=== PATIENT | male | born 1955 | race Caucasian/White ===

== ENCOUNTER 2017-05-15 16:14 | Inpatient (IN) | payer OTHER ==
[~2017-05-15] VITALS: Ht 179.1 cm
[2017-05-15] MEDS: PANTOPRAZOLE 80 MG in SODIUM CHL 0.9% 60 ML IV SCH (09:15)
[2017-05-15 17:35] LABS: Basophils # (auto) 0 uL; Basophils % (auto) 0.2 % (0.0-2.0); CONDITION Y; Eosinophils # (auto) 0 uL; Eosinophils % (auto) 0.4 % (0.0-7.0); Hematocrit 31.4 % (41.0-53.0); Hemoglobin 10.6 g/dL (13.5-17.5); Lymphocytes # (auto) 0.7 uL; Lymphocytes % (auto) 8.3 % (10.0-50.0); Mean Corpuscular Hgb Conc. 33.9 g/dL (32.0-36.0); Mean Corpuscular Volume 94.5 fL (80.0-100.0); Mean Platelet Volume 11.6 fL (7.4-10.4); Monocytes # (auto) 0.5 uL; Monocytes % (auto) 5.8 % (0.0-12.0); Neutrophils # (auto) 7.4 uL; Neutrophils % (auto) 85.3 % (37.0-80.0); Platelet Count (auto) 114 10^3/uL (140-450); Red Cell Distribution Width 14.5 % (11.6-16.0); SUSPECT SEE PRINTOUT; White Blood Cell 8.7 10^3/uL (4.4-10.8)
[2017-05-15 17:43] LABS: Albumin 2.7 g/dL (3.4-5.0); BUN/Creatinine Ratio 39.8; Bilirubin, Total 0.6 mg/dL (0.2-1.0); Calcium 7.4 mg/dL (8.5-10.1); Magnesium 1.9 mg/dL (1.6-2.6); Potassium 4.4 mmol/L (3.5-5.1); Total Protein 5.3 g/dL (6.4-8.2)
[2017-05-15] MEDS ORDERED: ESCI5TAB PO (18:18)
[2017-05-15] MEDS ORDERED: APIX5TAB PO (18:18)
[2017-05-15] MEDS ORDERED: ASPI81CH43 PO (18:18)
[2017-05-15] MEDS ORDERED: LIDOCAINE 1% HCL (LOCAL ANESTH.) INJ 20ML MDV IJ ONE (19:45)
[2017-05-15] MEDS ORDERED: LORazepam 2MG/ML-1ML VIAL IV ONE ×2 (20:00→21:15)
[2017-05-15] MEDS ORDERED: LORazepam 2MG/ML-1ML VIAL ONE (20:01)
[2017-05-15] MEDS ORDERED: AMIODARONE HCL 900 MG IV ONE (20:15)
[2017-05-15] MEDS: AMIODARONE HCL 900 MG in DEXTROSE 500 ML IV SCH (20:36)
[2017-05-15] MEDS ORDERED: NEOMYCIN-BACITRACIN-POLYM UNITDOSE PKG TOP OINT TOP ONE (20:45)
[2017-05-15] MEDS ORDERED: BACITRACIN TOP OINT 1 UD PKG TOP ONE (21:00)
[2017-05-15 22:42] LABS: Hematocrit 26.7 % (41.0-53.0); Hemoglobin 8.9 g/dL (13.5-17.5)
[2017-05-15] MEDS ORDERED: ALBUMIN 5% 250 ML IV ONE (22:45)
[2017-05-15] MEDS ORDERED: SODIUM CHLORIDE 0.9% 1,000 ML IV SCH (22:48)
[2017-05-15] MEDS ORDERED: MORPHINE SULF INJ 2 MG/ML SYRINGE 1ML IV PRN ×2 (23:00)
[2017-05-15] MEDS ORDERED: ONDANSETRON HCL 4 MG/2 ML VIAL IV PRN (23:00)
[2017-05-15] MEDS ORDERED: NITROGLYCERIN 0.4 MG SL TAB SL PRN (23:00)
[2017-05-15 23:28] LABS: INR 1.35 (0.9-1.15); Partial Thromboplastin Time 27.2 sec (22.64-33.71)
[2017-05-15 23:33] LABS: Prothrombin Time 14.8 sec (9.37-12.3)
[2017-05-15 23:45] VITALS: BP 82/40
[2017-05-16] VITALS (98 sets, daily range): BP systolic 77–142; BP diastolic 35–81
[2017-05-16] MEDS: AMIODARONE HCL 900 MG in DEXTROSE 500 ML IV SCH ×3 (00:03→14:29)
[2017-05-16] MEDS ORDERED: diphenhdrAMINE HCL 50 MG/1 ML VL IM ONE (04:45)
[2017-05-16 06:42] LABS: Basophils # (auto) 0 uL; Basophils % (auto) 0.1 % (0.0-2.0); CONDITION Y; Eosinophils # (auto) 0 uL; Eosinophils % (auto) 0.1 % (0.0-7.0); Hematocrit 28.3 % (41.0-53.0); Hemoglobin 9.9 g/dL (13.5-17.5); Lymphocytes # (auto) 1.2 uL; Lymphocytes % (auto) 11.1 % (10.0-50.0); Mean Corpuscular Hemoglobin 32.7 pg (28.0-32.0); Mean Corpuscular Volume 93.4 fL (80.0-100.0); Mean Platelet Volume 11.8 fL (7.4-10.4); Monocytes # (auto) 0.8 uL; Monocytes % (auto) 7.1 % (0.0-12.0); Neutrophils # (auto) 8.7 uL; Neutrophils % (auto) 81.6 % (37.0-80.0); Red Cell Distribution Width 14.4 % (11.6-16.0); White Blood Cell 10.6 10^3/uL (4.4-10.8)
[2017-05-16 06:44] LABS: Platelet Count (auto) 100 10^3/uL (140-450)
[2017-05-16 06:46] LABS: Albumin 2.6 g/dL (3.4-5.0); Calcium 7.5 mg/dL (8.5-10.1); Potassium 4.3 mmol/L (3.5-5.1)
[2017-05-16 06:54] LABS: BUN/Creatinine Ratio 48.9; Total Protein 4.9 g/dL (6.4-8.2)
[2017-05-16] MEDS: PANTOPRAZOLE 80 MG in SODIUM CHL 0.9% 60 ML IV SCH (09:15)
[2017-05-16] MEDS: BACITRACIN TOP OINT 1 UD PKG TOP SCH ×2 (10:00→21:43)
[2017-05-16] MEDS: NOREPINEPHRINE BITARTRATE 250 ML IV SCH (18:52)
[2017-05-16 18:59] LABS: Urine Bilirubin Negative (Negative); Urine Blood Negative /uL (Negative); Urine Color Yellow (Yellow); Urine Glucose Normal (Normal); Urine Ketone Negative (Negative); Urine Nitrite Negative (Negative); Urine RBC 2 /hpf (0 - 3); Urine Squamous Epithelial Cell FEW /hpf (<5); Urine Urobilinogen Normal (Negative)
[2017-05-16 19:59] LABS: Hematocrit 18.1 % (41.0-53.0)
[2017-05-16 20:18] LABS: INR 1.25 (0.9-1.15); Partial Thromboplastin Time 25.9 sec (22.64-33.71); Prothrombin Time 13.7 sec (9.37-12.3)
[2017-05-16 20:37] LABS: Hemoglobin 6.3 g/dL (13.5-17.5)
[2017-05-16] MEDS: PANTOPRAZOLE 40 MG/10 ML VIAL IV SCH ×2 (21:41→22:07)
[2017-05-16] MEDS: SODIUM CHLORIDE 0.9% 1,000 ML IV SCH (21:43)
[2017-05-17] VITALS (99 sets, daily range): BP systolic 75–135; BP diastolic 28–82
[2017-05-17 06:21] LABS: Basophils # (auto) 0 uL; Basophils % (auto) 0.1 % (0.0-2.0); CONDITION Y; DEFINITIVE SEE PRINTOUT; Eosinophils # (auto) 0 uL; Eosinophils % (auto) 0.1 % (0.0-7.0); Hematocrit 22.2 % (41.0-53.0); Lymphocytes # (auto) 1.2 uL; Lymphocytes % (auto) 10.3 % (10.0-50.0); Mean Corpuscular Hemoglobin 32.5 pg (28.0-32.0); Mean Corpuscular Hgb Conc. 35.8 g/dL (32.0-36.0); Mean Corpuscular Volume 90.7 fL (80.0-100.0); Mean Platelet Volume 11.4 fL (7.4-10.4); Monocytes # (auto) 0.9 uL; Monocytes % (auto) 7.5 % (0.0-12.0); Neutrophils # (auto) 9.4 uL; Platelet Count (auto) 92 10^3/uL (140-450); Red Cell Distribution Width 15.2 % (11.6-16.0); White Blood Cell 11.4 10^3/uL (4.4-10.8)
[2017-05-17 06:59] LABS: Albumin 2.5 g/dL (3.4-5.0); BUN/Creatinine Ratio 44.2; Calcium 7.3 mg/dL (8.5-10.1); Potassium 4.4 mmol/L (3.5-5.1)
[2017-05-17 07:01] LABS: Bilirubin, Total 0.7 mg/dL (0.2-1.0); Total Protein 4.6 g/dL (6.4-8.2)
[2017-05-17] MEDS: BACITRACIN TOP OINT 1 UD PKG TOP SCH ×2 (10:05→22:00)
[2017-05-17] MEDS: AMIODARONE HCL 900 MG in DEXTROSE 500 ML IV SCH (14:25)
[2017-05-17] MEDS ORDERED: GOLYTELY 4L KIT PO ONE (17:45)
[2017-05-17 18:23] LABS: Hematocrit 20.8 % (41.0-53.0); Hemoglobin 7.1 g/dL (13.5-17.5)
[2017-05-17] MEDS: NOREPINEPHRINE BITARTRATE 250 ML IV SCH (18:29)
[2017-05-17] MEDS: SODIUM CHLORIDE 0.9% 1,000 ML IV SCH (21:02)
[2017-05-17] MEDS: PANTOPRAZOLE 40 MG/10 ML VIAL IV SCH (21:47)
[2017-05-17] MEDS ORDERED: SODIUM BICARBONATE 50ML VIAL 150 ML in D5W 5% 1,000 ML IV SCH (23:30)
[2017-05-17] MEDS ORDERED: ACETYLCYSTEINE ORAL for CIN 20%(200MG/ML) 4ML PO ONE (23:30)
[2017-05-18] VITALS (84 sets, daily range): BP systolic 105–168; BP diastolic 43–98
[2017-05-18 03:55] LABS: Basophils # (auto) 0 uL; Basophils % (auto) 0.2 % (0.0-2.0); CONDITION Y; DEFINITIVE SEE PRINTOUT; Eosinophils # (auto) 0.1 uL; Hematocrit 22.1 % (41.0-53.0); Hemoglobin 7.5 g/dL (13.5-17.5); Lymphocytes # (auto) 1.1 uL; Lymphocytes % (auto) 12.7 % (10.0-50.0); Mean Corpuscular Hemoglobin 31.7 pg (28.0-32.0); Mean Corpuscular Volume 93.2 fL (80.0-100.0); Mean Platelet Volume 11.6 fL (7.4-10.4); Monocytes # (auto) 0.9 uL; Monocytes % (auto) 10.9 % (0.0-12.0); Neutrophils # (auto) 6.5 uL; Neutrophils % (auto) 75.2 % (37.0-80.0); Platelet Count (auto) 82 10^3/uL (140-450); Red Cell Distribution Width 15.6 % (11.6-16.0); White Blood Cell 8.7 10^3/uL (4.4-10.8)
[2017-05-18 04:17] LABS: BUN/Creatinine Ratio 32.2; Calcium 7.4 mg/dL (8.5-10.1); Potassium 3.7 mmol/L (3.5-5.1)
[2017-05-18] MEDS ORDERED: SODIUM CHLORIDE LOCK 10 ML ONE (09:53)
[2017-05-18] MEDS ORDERED: diphenhdrAMINE HCL 50 MG/1 ML VL ONE (09:53)
[2017-05-18] MEDS ORDERED: MIDAZOLAM HCL 5 MG/ML-1ML VIAL ONE (09:53)
[2017-05-18] MEDS ORDERED: fentaNYL CITRATE 100 MCG/2 ML VL ONE (09:53)
[2017-05-18] MEDS ORDERED: LIDOCAINE VISCOUS 2% 15ML UD ONE (09:53)
[2017-05-18] MEDS: BACITRACIN TOP OINT 1 UD PKG TOP SCH ×2 (10:00→21:14)
[2017-05-18] MEDS ORDERED: ACETYLCYSTEINE ORAL for CIN 20%(200MG/ML) 4ML PO SCH (10:00)
[2017-05-18] MEDS: PANTOPRAZOLE 40 MG/10 ML VIAL IV SCH ×2 (10:00→21:14)
[2017-05-18] MEDS ORDERED: EPINEPHrine HCL 1 MG/10 ML SYRG ONE (12:30)
[2017-05-18] MEDS: NOREPINEPHRINE BITARTRATE 250 ML IV SCH (18:29)
[2017-05-18] MEDS: SODIUM CHLORIDE 0.9% 1,000 ML IV SCH (19:30)
[2017-05-18] MEDS: AMIODARONE HCL 900 MG in DEXTROSE 500 ML IV SCH (20:30)
[2017-05-19] VITALS (105 sets, daily range): BP systolic 95–151; BP diastolic 37–86
[2017-05-19 03:45] LABS: Basophils # (auto) 0 uL; CONDITION Y; DEFINITIVE SEE PRINTOUT; Eosinophils # (auto) 0.1 uL; Eosinophils % (auto) 0.7 % (0.0-7.0); Hematocrit 21.3 % (41.0-53.0); Hemoglobin 7.3 g/dL (13.5-17.5); Lymphocytes # (auto) 0.8 uL; Mean Corpuscular Hemoglobin 31.9 pg (28.0-32.0); Mean Corpuscular Hgb Conc. 34.2 g/dL (32.0-36.0); Mean Corpuscular Volume 93.1 fL (80.0-100.0); Mean Platelet Volume 10.9 fL (7.4-10.4); Monocytes # (auto) 0.9 uL; Monocytes % (auto) 11.7 % (0.0-12.0); Neutrophils # (auto) 5.9 uL; Neutrophils % (auto) 77.6 % (37.0-80.0); Platelet Count (auto) 79 10^3/uL (140-450); Red Cell Distribution Width 15.3 % (11.6-16.0); White Blood Cell 7.7 10^3/uL (4.4-10.8)
[2017-05-19 04:30] LABS: BUN/Creatinine Ratio 21.4; Calcium 7.6 mg/dL (8.5-10.1); Potassium 3.8 mmol/L (3.5-5.1)
[2017-05-19] MEDS ORDERED: LIDOCAINE VISCOUS 2% 15ML UD ONE (07:56)
[2017-05-19] MEDS ORDERED: MIDAZOLAM HCL 5 MG/ML-1ML VIAL IM ONE (08:15)
[2017-05-19] MEDS ORDERED: fentaNYL CITRATE 100 MCG/2 ML VL IM ONE (08:15)
[2017-05-19] MEDS ORDERED: diphenhdrAMINE HCL 50 MG/1 ML VL IV ONE (08:15)
[2017-05-19] MEDS ORDERED: HEPARIN IN NS 1000U/500ML (2UNIT/ML) 500 ML BAG IV ONE (09:15)
[2017-05-19] MEDS: PANTOPRAZOLE 40 MG/10 ML VIAL IV SCH ×2 (09:36→22:21)
[2017-05-19] MEDS: METOPROLOL TARTRATE 25 MG TAB PO SCH ×2 (09:37→21:45)
[2017-05-19] MEDS: BACITRACIN TOP OINT 1 UD PKG TOP SCH ×2 (09:38→22:21)
[2017-05-19] MEDS ORDERED: FUROSEMIDE 20 MG/2 ML VIAL IV ONE (15:30)
[2017-05-19] MEDS ORDERED: ceFAZolin 1GM/50ML D5W 50 ML IV ONE (15:30)
[2017-05-19] MEDS ORDERED: HEPARIN 1,000 UNITS/ml 1ML VIAL IV ONE (15:45)
[2017-05-19] MEDS: ceFAZolin 1GM/50ML D5W 50 ML IV SCH (22:21)
[2017-05-20] VITALS (20 sets, daily range): BP systolic 104–157; BP diastolic 43–96
[2017-05-20 04:13] LABS: Basophils # (auto) 0 uL; Basophils % (auto) 0.3 % (0.0-2.0); CONDITION Y; DEFINITIVE SEE PRINTOUT; Eosinophils # (auto) 0.1 uL; Eosinophils % (auto) 1.1 % (0.0-7.0); Hematocrit 24.6 % (41.0-53.0); Hemoglobin 8.4 g/dL (13.5-17.5); Lymphocytes % (auto) 13.3 % (10.0-50.0); Mean Corpuscular Hemoglobin 31.8 pg (28.0-32.0); Mean Corpuscular Hgb Conc. 34.1 g/dL (32.0-36.0); Mean Corpuscular Volume 93.4 fL (80.0-100.0); Mean Platelet Volume 10.9 fL (7.4-10.4); Monocytes # (auto) 0.9 uL; Monocytes % (auto) 12.8 % (0.0-12.0); Neutrophils # (auto) 5.3 uL; Neutrophils % (auto) 72.5 % (37.0-80.0); Platelet Count (auto) 86 10^3/uL (140-450); Red Cell Distribution Width 14.8 % (11.6-16.0); SUSPECT SEE PRINTOUT; White Blood Cell 7.4 10^3/uL (4.4-10.8)
[2017-05-20 04:19] LABS: Calcium 7.4 mg/dL (8.5-10.1); Potassium 3.7 mmol/L (3.5-5.1)
[2017-05-20 04:21] LABS: BUN/Creatinine Ratio 13.6
[2017-05-20] MEDS: ceFAZolin 1GM/50ML D5W 50 ML IV SCH ×3 (06:21→21:37)
[2017-05-20] MEDS: PANTOPRAZOLE 40 MG/10 ML VIAL IV SCH ×2 (10:28→21:37)
[2017-05-20] MEDS: BACITRACIN TOP OINT 1 UD PKG TOP SCH ×2 (10:28→21:46)
[2017-05-20] MEDS: METOPROLOL TARTRATE 25 MG TAB PO SCH ×2 (10:28→21:38)
[2017-05-21 04:45] VITALS: BP 140/70
[2017-05-21 05:12] LABS: Basophils # (auto) 0 uL; Basophils % (auto) 0.3 % (0.0-2.0); CONDITION Y; Eosinophils # (auto) 0.1 uL; Eosinophils % (auto) 1.5 % (0.0-7.0); Hematocrit 27.1 % (41.0-53.0); Hemoglobin 9.2 g/dL (13.5-17.5); Lymphocytes % (auto) 13.4 % (10.0-50.0); Mean Corpuscular Hemoglobin 31.7 pg (28.0-32.0); Mean Corpuscular Volume 93.4 fL (80.0-100.0); Mean Platelet Volume 11.1 fL (7.4-10.4); Monocytes # (auto) 1.1 uL; Monocytes % (auto) 13.7 % (0.0-12.0); Neutrophils # (auto) 5.5 uL; Neutrophils % (auto) 71.1 % (37.0-80.0); Platelet Count (auto) 103 10^3/uL (140-450); Red Cell Distribution Width 14.6 % (11.6-16.0); White Blood Cell 7.7 10^3/uL (4.4-10.8)
[2017-05-21 05:39] LABS: BUN/Creatinine Ratio 9.1; Calcium 7.7 mg/dL (8.5-10.1); Potassium 3.5 mmol/L (3.5-5.1)
[2017-05-21] MEDS: ceFAZolin 1GM/50ML D5W 50 ML IV SCH (05:54)
[2017-05-21 08:00] VITALS: BP 137/61
[2017-05-21 08:50] VITALS: BP 137/61
[2017-05-21] MEDS: PANTOPRAZOLE 40 MG/10 ML VIAL IV SCH (10:17)
[2017-05-21] MEDS: BACITRACIN TOP OINT 1 UD PKG TOP SCH (10:18)
[2017-05-21] MEDS: METOPROLOL TARTRATE 25 MG TAB PO SCH (10:18)
[2017-05-21 11:57] VITALS: BP 137/61
[2017-05-21 12:29] VITALS: BP 138/74
== END 2017-05-21 14:10 | disposition home or self-care (01) | DRG 377 ==
LOC: EDBD 16:14 → ER 16:20 → TELE 16:21 → ICU WEST 23:53 → TELE-WESTW 05-20 22:17
PROVIDERS: ADMIT Nurse Practitioner; ATTEND Internal Medicine
PROC: 0HQMXZZ Repair Right Foot Skin, External Approach (ICD-10-PCS; principal; 2017-05-15)
PROC: 30233N1 Transfusion of Nonautologous Red Blood Cells into Peripheral Vein, Percutaneous Approach (ICD-10-PCS; 2017-05-16)
PROC: 30233L1 Transfusion of Nonautologous Fresh Plasma into Peripheral Vein, Percutaneous Approach (ICD-10-PCS; 2017-05-16)
PROC: 30233K1 Transfusion of Nonautologous Frozen Plasma into Peripheral Vein, Percutaneous Approach (ICD-10-PCS; 2017-05-16)
PROC: 0DJ08ZZ Inspection of Upper Intestinal Tract, Via Natural or Artificial Opening Endoscopic (ICD-10-PCS; 2017-05-18)
PROC: 0DJD8ZZ Inspection of Lower Intestinal Tract, Via Natural or Artificial Opening Endoscopic (ICD-10-PCS; 2017-05-18)
PROC: B246ZZ4 Ultrasonography of Right and Left Heart, Transesophageal (ICD-10-PCS; 2017-05-18)
PROC: 5A2204Z Restoration of Cardiac Rhythm, Single (ICD-10-PCS; 2017-05-18)
DX: K92.2 Gastrointestinal hemorrhage, unspecified (principal); E43 Unspecified severe protein-calorie malnutrition; I50.42 Chronic combined systolic (congestive) and diastolic (congestive) heart failure; D64.9 Anemia, unspecified; E66.01 Morbid (severe) obesity due to excess calories; I11.0 Hypertensive heart disease with heart failure; K40.90 Unilateral inguinal hernia, without obstruction or gangrene, not specified as recurrent; M77.9 Enthesopathy, unspecified; M48.06 Spinal stenosis, lumbar region; I48.2 Chronic atrial fibrillation; I95.9 Hypotension, unspecified; I80.8 Phlebitis and thrombophlebitis of other sites; D69.6 Thrombocytopenia, unspecified; M46.05 Spinal enthesopathy, thoracolumbar region; K42.9 Umbilical hernia without obstruction or gangrene; N40.0 Benign prostatic hyperplasia without lower urinary tract symptoms; Z98.84 Bariatric surgery status; Z68.38 Body mass index [BMI] 38.0-38.9, adult; Z90.49 Acquired absence of other specified parts of digestive tract; Z79.899 Other long term (current) drug therapy; Z79.82 Long term (current) use of aspirin; Z79.01 Long term (current) use of anticoagulants; Z86.73 Personal history of transient ischemic attack (TIA), and cerebral infarction without residual deficits; Z95.1 Presence of aortocoronary bypass graft; Z79.02 Long term (current) use of antithrombotics/antiplatelets
CPT/HCPCS: 12002; 36415; 43235; 45378; 70450; 71010; 74176; 78278; 80048; 80053; 81001; 82962; 83036; 83735; 84484; 85014; 85018; 85025; 85610; 85730; 86850; 86900; 86901; 86920; 87081; 93005; 93306; 93312; 93971; 94660; 96374; A9560; C9113; J0690; J2001; J2250

== ENCOUNTER 2021-09-09 17:38 | Emergency (ER) | payer MEDICARE, OTHER ==
[~2021-09-09] VITALS: Ht 177.8 cm; Wt 142.0 kg
[~2021-09-09 17:38] MED LIST: APIX5TAB PO; ASPI81CH43 PO; ESCI5TAB PO
[2021-09-09] MEDS ORDERED: OXYCODONE W/ ACETAMINOPHEN 5/325MG TABLET PO ONE (19:30)
[2021-09-09 20:48] VITALS: BP 106/62
== END 2021-09-09 20:46 | disposition home or self-care (01) ==
LOC: EDBD 17:38 → ER 17:38
DX: S82.54XA Nondisplaced fracture of medial malleolus of right tibia, initial encounter for closed fracture (principal); W19.XXXA Unspecified fall, initial encounter; Y93.89 Activity, other specified; Y92.89 Other specified places as the place of occurrence of the external cause; Y99.8 Other external cause status; I11.0 Hypertensive heart disease with heart failure; I50.9 Heart failure, unspecified; I48.91 Unspecified atrial fibrillation; Z86.73 Personal history of transient ischemic attack (TIA), and cerebral infarction without residual deficits
CPT/HCPCS: 29515; 73600; 73620